=== PATIENT | male | born 1980 | race Asian ===

== ENCOUNTER 2018-09-07 13:14 | Emergency (ER) | payer OTHER ==
[~2018-09-07] VITALS: Ht 182.9 cm; Wt 124.7 kg
[2018-09-07 13:57] LABS: POTASSIUM 3.6 mmol/L (3.6-5.2)
[2018-09-07 13:58] LABS: PLATELET COUNT 115 K/uL (142-355)
[2018-09-07 20:05] VITALS: BP 148/84; TEMP 98
== END 2018-09-07 20:05 | disposition home or self-care (01) ==
LOC: ED 13:14
PROVIDERS: Emergency Medicine
DX: I10 Essential (primary) hypertension (principal); R00.1 Bradycardia, unspecified
CPT/HCPCS: 80053; 84443; 85027; 93005; 96365; 96375; 96376; 99284; J0360; J3490

== ENCOUNTER 2018-09-07 15:20 | Outpatient (CLI) | payer OTHER | END 2018-09-07 15:30 | disposition short-term general hospital (02) | LOC: AMB 15:20 | DX: R51 Headache (principal); Z04.89 Encounter for examination and observation for other specified reasons | CPT/HCPCS: A0425; A0426 ==

== ENCOUNTER 2019-05-04 08:23 | Emergency (ER) | payer OTHER ==
[~2019-05-04] VITALS: Ht 182.9 cm; Wt 124.7 kg
[2019-05-04 08:35] VITALS: BP 163/110; TEMP 97.9
== END 2019-05-04 09:15 | disposition home or self-care (01) ==
LOC: ED 08:23
DX: M54.2 Cervicalgia (principal); G89.29 Other chronic pain
CPT/HCPCS: 96372; 99283; J1885; J2930